=== PATIENT | male | born 1995 | race Caucasian/White ===

== ENCOUNTER 2021-10-08 21:09 | Emergency (ER) | payer BC, SELFPAY ==
[2021-10-08 21:55] VITALS: BP 160/111; PULSE 58; RESP 18; TEMP 37.1; O2SAT 98; BMI 25.8
--- NOTE | 2021-10-08 23:01 | ED_ITS ---
HPI - Extremity Problem General Chief complaint: Extremity Injury, Upper Stated complaint: Finger Cut Time Seen by Provider: 10/08/21 23:01 Source: patient Mode of arrival: ambulatory Limitations: no limitations History of Present Illness HPI Narrative: 25-year-old male history of hypertension presents with a laceration to his left index finger, injury occurred just prior to his arrival. Patient tells me that he was using a clean crap game box person to cut vinyl floor, accidentally cut himself. Tells me initially was bleeding a lot however now it has stopped bleeding as much as before. He reports some pain to the area however denies numbness, tingling. Patient is not on blood thinners. MD Complaint: other (Laceration) Onset (ago): hour(s) (2) Pain Consistency: constant Location: left Quality: other (Stinging) Radiation: none Relieving factors: nothing Exacerbating factors: nothing Associated symptoms: denies other symptoms Related Data Previous Rx's Medication Instructions Recorded doxycycline hyclate 100 mg capsule 100 mg PO BID 10 days #20 caps 10/08/21 Allergies Allergy/AdvReac Type Severity Reaction Status Date / Time No Known Allergies Allergy Verified 10/08/21 22:03 Review of Systems Review of Systems: Constitutional : No Fever, No Chills, Cardiovascular : No Chest Pain, No SOB Respiratory : No Dyspnea Gastrointestinal : No abdominal pain Musculoskeletal : No Joint Swelling Skin : No rash, positive skin laceration Neuro : No Weakness, No Numbness Psych : No SI/HI PMFSH Past Medical History Attestation statement: The following information was validated with the patient. Source: old records reviewed and nursing notes reviewed Social History Social History Advance Directives: No Advance Directives Information Provided: No Physical Exam Vital Signs: Vital Signs: Last Vital Signs Temp 98.8 F 10/08/21 21:55 Pulse 58 10/08/21 21:55 Resp 18 10/08/21 21:55 BP 160/111 H 10/08/21 21:55 Pulse Ox 98 10/08/21 21:55 O2 Del Method 10/08/21 21:55 BMI result Body Mass Index 25.8 Patient is noted to be hypertensive likely secondary to pain. Appearance: Alert.? Oriented X3.? No acute distress.? Head: Normocephalic, atraumatic, no step-offs or deformities Eyes: Pupils equal, round and reactive to light.? CVS: Normal heart rate and rhythm.? Pulses normal.? Respiratory: No respiratory distress.? Breath sounds normal.? Abdomen: Soft and nontender.? Skin: Skin warm and dry.? Normal skin color.? Normal skin turgor.?+2cm laceration to the distal aspect of left index finger, involving part of the nail bed. Images attached Extremities: No lower extremity edema.? No calf ttp. 5/5 strength to bilateral upper and lower extremities Neuro: Oriented X 3.? No motor deficit.? No sensory deficit. CN 2-12 intact Course Reevaluation(s) Reevaluation #1: Glue and Steri-Strips were applied to the area. Patient tolerated procedure well. This time patient will be discharged home on antibiotics. Advised to return with new or worsening symptoms. Time: 23:12 MDM - Extremity (Nontraumatic) MDM Narrative Medical decision making narrative: 2300 25-year-old male presents with a small lack to his left index finger status post cutting himself with a crap game box person. Unknown tetanus status. Not on thinners Physical exam with a 2 cm linear laceration involving part of the nail bed. Images in chart. Plan will clean area well. Laceration is very superficial will use glue and Steri-Strips to close. I do not think sutures are necessary at this time. I will also give patient has tetanus shot and discharge him home on antibiotics. Medical Records Attestation: I reviewed the patient's medical records. Lab Data Attestation: I reviewed the patient's lab results. Critical Care Time Critical Care Time Critical Care Time: No Discharge Plan Discharge Clinical Impression: Laceration of left index finger Patient Disposition: Home, Self-Care Instructions: Laceration (ED), Finger Laceration (ED), Laceration Without Closure (ED) Additional Instructions: Take your medications as prescribed. If you were prescribed antibiotics today, it is important that you take your medication to their entirety, do not skip any doses, do not finish them early. Follow-up with your primary care provider this week. Return to the emergency department with new or worsening symptoms. Such as fevers, chills, chest pain, shortness of breath, nausea, vomiting, dizziness, headache, vision changes, lethargy, pain, swelling or worsening redness to the area. In case of emergency call 911 Please allow the glue to fall off on its own. Do not pick at the glue or the Steri-Strips. These will fall off alone. Prescriptions: New doxycycline hyclate 100 mg capsule 100 mg PO BID 10 Days Qty: 20 0RF Referrals: Physician,Unknown J [Primary Care Provider] - 2 days Stand Alone Forms: Work/School Release
[2021-10-08 23:47] VITALS: BP 167/91; PULSE 62; RESP 16; O2SAT 100
[2021-10-08] MEDS: Diphth,Pertus(ACell),Tet Adult 0.5 ML SYRINGE IM (23:48)
== END 2021-10-08 23:55 | disposition home or self-care (01) ==
PROVIDERS: Emergency Provider Internal Medicine
DX: S61.211A Laceration without foreign body of left index finger without damage to nail, initial encounter (principal); S60.411A Abrasion of left index finger, initial encounter; W26.0XXA Contact with knife, initial encounter; Y93.9 Activity, unspecified; Y92.9 Unspecified place or not applicable; Y99.9 Unspecified external cause status; Z79.899 Other long term (current) drug therapy
CPT/HCPCS: 90471; 90715; 99282; 99284